=== PATIENT | female | born 1960 | race Two or more races ===

== ENCOUNTER 2021-04-25 12:20 | Outpatient (CLI) | payer OTHER | END 2021-04-26 14:53 | disposition home or self-care (01) | LOC: MAMO-SONO 12:20 | DX: N64.59 Other signs and symptoms in breast (principal); Z12.31 Encounter for screening mammogram for malignant neoplasm of breast; Z87.898 Personal history of other specified conditions ==

== ENCOUNTER 2021-09-17 13:03 | Outpatient (CLI) | payer OTHER | END 2021-09-17 13:08 | disposition home or self-care (01) | LOC: NUCLEAR 13:03 | PROVIDERS: ATTEND General Practice | DX: M81.0 Age-related osteoporosis without current pathological fracture (principal) ==

== ENCOUNTER → 2022-11-26 | Outpatient (CLI) | payer OTHER | END | disposition home or self-care (01) | LOC: MAMO-SONO 13:35 | DX: Z12.31 Encounter for screening mammogram for malignant neoplasm of breast (principal); N64.4 Mastodynia ==

== ENCOUNTER → 2025-06-28 | Outpatient (CLI) | payer OTHER | END | disposition home or self-care (01) | LOC: MAMO-SONO 13:10 | DX: N64.4 Mastodynia (principal); Z12.31 Encounter for screening mammogram for malignant neoplasm of breast ==